=== PATIENT | female | born 1930 | race Caucasian/White ===

== ENCOUNTER 2018-02-06 11:08 | Emergency (ER) | payer MEDICARE ==
--- NOTE | 2018-02-06 12:00 | UC ---
Logan Hutchison Jade, scribed for Jacinto Keyes MD on 02/06/18 at 1153 . Skin Complaint HPI - HPI Summary HPI Summary: Patient is an 87 y/o female who presents to [facility] [place] c/o a red skin area. She states the area has been there for 1-2 weeks, and is painful to touch. Patient describes the pain as achy and is rated a 6/10. She is worried about a possible allergic reaction. - History of Current Complaint Chief Complaint: UCSkin Time Seen by Provider: 02/06/18 11:28 Stated Complaint: SKIN ISSUE Hx Obtained From: Patient Onset/Duration: Gradual Onset, Lasting Weeks - 1-2 weeks, Still Present Timing: Constant Current Severity: Moderate Pain Intensity: 6 Pain Scale Used: 0-10 Numeric Location: Other - Back of neck Character: Pain, Redness Aggravating Factor(s): Nothing Alleviating Factor(s): Nothing Associated Signs & Symptoms: Positive: Negative - Allergy/Home Medications Allergies/Adverse Reactions: Allergies Allergy/AdvReac Type Severity Reaction Status Date / Time environment Allergy Unknown Uncoded 02/06/18 11:36 Reaction Details Home Medications: Home Medications Aspirin [Aspirin EC] 81 mg PO DAILY 02/06/18 [History Confirmed 02/06/18] Cetirizine* [ZyrTEC 10 MG TAB*] 10 mg PO DAILY PRN 02/06/18 [History Confirmed 02/06/18] Hydrochlorothiazide TAB* [Hydrodiuril TAB*] 12.5 mg PO DAILY 02/06/18 [History Confirmed 02/06/18] Lisinopril TAB* [Prinivil TAB*] 20 mg PO DAILY 02/06/18 [History Confirmed 02/06] Lovastatin [Altoprev] 40 mg PO DAILY 02/06/18 [History Confirmed 02/06/18] Metoprolol Tartrate TAB* [Lopressor TAB*] 50 mg PO DAILY 02/06/18 [History Confirmed 02/06/18] Multivitamin [Multivitamins] 1 cap PO DAILY 02/06/18 [History Confirmed 02/06/18 ] Review of Systems Constitutional: Negative - Fever Skin: Other - Red painful area on back of neck All Other Systems Reviewed And Are Negative: Yes PMH/Surg Hx/FS Hx/Imm Hx Endocrine History: Other Other Endocrine History: NEGATIVE: diabetes Cardiovascular History: Other Other Cardiovascular History: NEGATIVE: HTN - Surgical History Surgical History: Yes Surgery Procedure, Year, and Place: hysterectomy, esophageal dilation, L mastectomy, implant, R knee meniscus - Family History Known Family History: Negative: Hypertension, Diabetes - Social History Alcohol Use: Rare Substance Use Type: None Smoking Status (MU): Never Smoked Tobacco Physical Exam - Summary Physical Exam Summary: VITAL SIGNS: Reviewed. GENERAL: Patient is a well-developed and nourished FEMALE who is lying comfortable in the stretcher. Patient is not in any acute respiratory distress. HEAD AND FACE: Normocephalic EYES: PERRLA, EOMI x 2. EARS: Hearing grossly intact. MOUTH: Oropharynx within normal limits. NECK: Supple, trachea is midline, no adenopathy, no JVD, no carotid bruit. CHEST: Symmetric, no tenderness at palpation LUNGS: Clear to auscultation bilaterally. No wheezing or crackles. CVS: Regular rate and rhythm, S1 and S2 present, no murmurs or gallops appreciated. ABDOMEN: Soft, non-tender. Bowel sounds are normal. No abdominal abnormal pulsations. EXTREMITIES: Full ROM in all major joints, no edema, no cyanosis or clubbing. NEURO: Alert and oriented x 3. No acute neurological deficits. Speech is normal and follows commands. SKIN: Dry and warm. Pimple with white head and puss on back of neck. Triage Information Reviewed: Yes Vital Signs: Initial Vital Signs Temp 97.3 F 02/06/18 11:28 Pulse 56 02/06/18 11:28 Resp 16 02/06/18 11:28 BP 195/85 02/06/18 11:28 Pulse Ox 99 02/06/18 11:28 Vital Signs Reviewed: Yes Course/Dx - Course Course Of Treatment: Patient has an infected follicle very superficial in the back of the neck. Patient was given bacitracin and recommends triple antibiotic once or twice a day. She was also recommended to follow with primary care physician or if symptoms worsen to return to urgent care for further assessment. She understands and agrees. - Diagnoses Provider Diagnoses: Infected follicle Discharge - Sign-Out/Discharge Documenting (check all that apply): Discharge/Admit/Transfer - Discharge Plan Condition: Stable Disposition: HOME Patient Education Materials: Cyst (ED) Referrals: [facility] [place] PHYSICIAN REFERRAL [Outside] No Primary Care Phys,NOPCP [Primary Care Provider] - Additional Instructions: Appetite Triple Antibiotic once or twice a day. FOLLOW UP WITH YOUR PRIMARY CARE PROVIDER WITHIN ONE WEEK FOR HIGH BLOOD PRESSURE NOTED TODAY. The symptoms worsen placed return to the urgent care or follow with the primary care physician. - Billing Disposition and Condition Condition: STABLE Disposition: Home The documentation as recorded by the Logan montejo Jade accurately reflects the service I personally performed and the decisions made by me, Jacinto Keyes MD.
== END 2018-02-06 11:59 | disposition home or self-care (01) ==
LOC: UCEAST 11:08
DX: L73.8 Other specified follicular disorders (principal); Z91.09 Other allergy status, other than to drugs and biological substances; Z79.82 Long term (current) use of aspirin
CPT/HCPCS: 99201; G0463